=== PATIENT | female | born 1980 | race Two or more races ===

== ENCOUNTER 2022-12-23 10:42 | Outpatient (CLI) | payer OTHER | END 2022-12-23 11:00 | disposition home or self-care (01) | LOC: RAD 10:42 | DX: Z11.1 Encounter for screening for respiratory tuberculosis (principal) ==

== ENCOUNTER 2024-08-20 14:58 | Emergency (ER) | payer OTHER ==
[~2024-08-20] VITALS: Ht 152.4 cm; Wt 61.2 kg
[2024-08-20 17:05] LABS: HEMATOCRIT 38.9 % (36.0-45.00); HEMOGLOBIN 12.6 g/dL (12.0-15.00); MEAN CELL VOLUME 82.7 fL (80.00-100.00); MEAN CORPUSCULAR HEMOGLOBIN 26.8 pg (27.00-32.0); MEAN CORPUSCULAR HGB CONC 32.4 g/dl (32.0-36.0); PLATELET COUNT 275 K/uL (150-450); RED CELL DISTRIBUTION WIDTH 15.2 % (11.5-14.5)
[2024-08-20 17:14] LABS: PH,URINE 8.5 (5.0-8.0); URINE APPEARANCE Cloudy; URINE BILIRRUBIN Negative (NEGATIVE); URINE BLOOD Negative; URINE COLOR Yellow; URINE GLUCOSE Negative (NEGATIVE); URINE KETONE Negative (NEGATIVE); URINE LEUKOCYTE Negative; URINE NITRATE Negative; URINE PROTEIN Negative (NEGATIVE); URINE UROBILINOGEN 0.2 E.U./dl
[2024-08-20 17:15] LABS: URINE BACTERIA 124.7 uL (0.0-1933); URINE RBC 6.4 uL (0.0-20.8)
[2024-08-20 17:27] LABS: URINE WBC 0.1 uL (0.0-23.2)
[2024-08-20 17:40] LABS: CALCIUM 9.1 mg/dL (8.5-10.1); CREATININE SERUM 0.85 mg/dL (0.55-1.02); GFR 73.7; POTASSIUM 4.7 mEq/L (3.5-5.1)
[2024-08-20] MEDS ORDERED: KETOROLAC TROMETHAMINE 30 MG VIAL IM STA ×2 (17:45→22:10)
[2024-08-20] MEDS ORDERED: METHYLPREDNISOLONE SOD SUCC 125 MG VIAL IV ONE (18:30)
[2024-08-20] MEDS ORDERED: DIPHENHYDRAMINE HCL 50 MG/ML VIAL 1ML IV ONE (18:30)
[2024-08-20] MEDS ORDERED: IBUPROFEN800 MG PO (21:59)
== END 2024-08-20 22:39 | disposition home or self-care (01) ==
LOC: ER 14:59
PROVIDERS: General Practice
DX: D25.9 Leiomyoma of uterus, unspecified (principal)

== ENCOUNTER 2025-10-10 13:58 | Outpatient (CLI) | payer OTHER ==
[~2025-10-10 13:58] MED LIST: IBUPROFEN800 MG PO
== END 2025-10-10 14:06 | disposition home or self-care (01) ==
LOC: RAD 13:58
PROVIDERS: ATTEND Physical Medicine & Rehabilitation
DX: M25.512 Pain in left shoulder (principal); M54.2 Cervicalgia